=== PATIENT | female | born 1950 | race Caucasian/White ===

== ENCOUNTER → 2017-05-12 16:48 | Outpatient (CLI) | payer MEDICARE, BC ==
[2017-05-12 19:09] LABS: BILIRUBIN - DIRECT 0.09 mg/dL (0.00-0.30); BILIRUBIN - INDIRECT 0.29 mg/dL (0.00-1.00); BILIRUBIN - TOTAL 0.38 mg/dL (0.2-1.3); CHOL - HDL RATIO 2.5 ratio (2.3-4.1); LDL-HDL RATIO 1.4 ratio (1.5-3.5); PROTEIN - SERUM 6.9 g/dL (6.4-8.2)
== END | disposition home or self-care (01) ==
LOC: D.LABREF 16:48
PROVIDERS: Internal Medicine Cardiovascular Disease
DX: I10 Essential (primary) hypertension (principal); Z00.00 Encounter for general adult medical examination without abnormal findings

== ENCOUNTER → 2017-05-21 09:38 | Outpatient (CLI) | payer MEDICARE, BC ==
--- NOTE | ~2017-05-21 | EC ---
PATIENT:SHONDA AYALA DATE OF SERVICE: 05/21/17 SEX: F MEDICAL RECORD: [id number] DATE OF : 48 LOCATION:D[facility] AGE OF PATIENT: 66 ADMISSION DATE: 05/21/17 REFERRING PHYSICIAN: INTERPRETING PHYSICIAN: ZOE AL MD ECHOCARDIOGRAM REPORT ECHO CHARGES 4 ECHO COMPLETE CLINICAL DIAGNOSIS: CHEST PAIN ECHOCARDIOGRAPHIC MEASUREMENTS (adult normal given) AC root (d.<3.7cm) 3.4 cm LV Septum d (<1.2 cm> 1.3 cm Valve Excursion 1.8 cm LV Septum (systole) 1.8 cm Left Atria (s.<4.0cm> 3.2 cm LVPW d(<1.2cm) 1.5 cm RV (d.<2.3cm) 3.2 cm LVPW (sytole) 1.8 cm LV diastole(<5.6CM) 4.2 cm MV E-F(>70mm/sec) cm LV systole 2.1 cm LVOT Diameter 1.8 cm MV exc.(>10mm) 1.5 cm Est.ejection fraction (50-75%) % Pericardial Effusion Y DOPPLER: LVIT cm/sec A 95.0 cm/sec E 83.0 cm/sec LA cm/sec RVSP 56 mmHg LVOT 120 cm/sec AOP1/2T m/s Asc. Ao 162 cm/sec RVOT 101 cm/sec RA cm/sec PA 160 cm/sec AV Gradient Peak 10.50mmHg AV Mean 4.70 mmHg AV Area 1.7 cm MV Gradient Peak 4.56 mmHg MV Mean 2.37 mmHg MV Area cm COMMENTS: Bun Machine Operator: 2 MARLENE MOBLEY Computer Assistant: 4 Dr. Al TAPE# PACS DATE OF SERVICE: 05/21/2017 PROCEDURE: Transthoracic echocardiogram. FINDINGS: 1. Left ventricle has moderate left ventricular hypertrophy with inflow characteristics consistent with diastolic dysfunction, hyperdynamic LV function with an ejection fraction of 70% to 75%. 2. The mitral valve has mild mitral regurgitation, is otherwise normal. 3. The aortic valve is normal. ECHOCARDIOGRAM REPORT [id number] SHONDA AYALA 4. The tricuspid valve has moderate tricuspid regurgitation, RVSP of 45 to 50 mmHg. 5. Pericardium is normal. 6. The pulmonic valve is normal. 7. The right atrium is mildly dilated, normal function. 8. The right ventricle is mildly dilated and normal function. There is no obvious thrombus or effusions and the IVC is seen to be normal size and collapse with inspiration. TRANSINT:[id number] Voice Confirmation ID: [id number] DOCUMENT ID: [id number] ZOE AL MD at 1522 CC: [id number] DICTATION DATE: 05/21/17 1200 AUTOMATIC EMBROIDERY MACHINE TENDER: 05/21/17 1217 DEP CLI 05/21/17 [facility] [address] [place] [address]
== END | disposition home or self-care (01) ==
LOC: D.ECHO 04-20 09:30
DX: R07.9 Chest pain, unspecified (principal); R94.39 Abnormal result of other cardiovascular function study; I10 Essential (primary) hypertension

== ENCOUNTER → 2018-01-08 09:42 | Outpatient (CLI) | payer MEDICARE, BC | END | disposition home or self-care (01) | LOC: D.MRI 09:42 | DX: M25.571 Pain in right ankle and joints of right foot (principal) ==

== ENCOUNTER → 2018-08-18 16:22 | Outpatient (CLI) | payer MEDICARE, BC | END | disposition home or self-care (01) | LOC: D.MAMMO 10:00 | PROVIDERS: ATTEND Family Medicine | DX: Z12.31 Encounter for screening mammogram for malignant neoplasm of breast (principal) ==

== ENCOUNTER → 2018-10-18 09:35 | Outpatient (CLI) | payer MEDICARE, BC | END | disposition home or self-care (01) | LOC: D.US 09:35 | PROVIDERS: ATTEND Surgery | DX: I83.893 Varicose veins of bilateral lower extremities with other complications (principal) ==